=== PATIENT | male | born 1940 | race Asian ===

== ENCOUNTER 2024-10-14 23:09 | Inpatient (IN) | payer OTHER ==
[2024-10-14] MEDS ORDERED: FAMOTIDINE 20 MG/50 ML IVPB 20 MG/50 ML MG IVPB ONE (23:43)
[2024-10-14] MEDS ORDERED: ONDANSETRON 4 MG/2 ML VIAL ONE (23:43)
[2024-10-15 00:06] LABS: VENOUS BASE EXCESS -2.9 mmol/L (-2-2); VENOUS O2 SATURATION 23.8 % (70-80); VENOUS PCO2 51.4 mmHg (38-52); VENOUS PH 7.292 (7.310-7.410)
[2024-10-15 00:07] LABS: BASO % 0.3 % (0-2.0); EOS % 0.5 % (0-4.5); HEMATOCRIT 42.8 % (35.4-49); HEMOGLOBIN 14.2 GM/dL (11.7-16.9); LYMPH % 13.4 % (8-40); MCH 28.2 pg (25.7-33.7); MCHC 33.1 g/dl (32.0-35.9); MEAN CELL VOLUME 85.2 fl (80-96); MEAN PLT VOLUME 10.1 fl (7.5-11.1); NEUT % 77.8 % (42.8-82.8); PLATELET COUNT 162 10^3/uL (134-434); RBC 5.02 M/mm3 (4.00-5.60); RDW 14.7 % (11.9-15.9); WHITE BLOOD COUNT 9.5 K/mm3 (4.0-10.0)
[2024-10-15] MEDS: FAMOTIDINE 20 MG/50 ML IVPB 20 MG in PREMIX 50 IVPB ONE (00:08)
[2024-10-15] MEDS: SODIUM CHLORIDE 0.9% 500 ML INFUS.BAG IV ONE (00:08)
[2024-10-15] MEDS: ONDANSETRON 4 MG/2 ML VIAL IVPB ONE (00:08)
[2024-10-15 00:16] LABS: INR 1.08 (0.83-1.09); PROTHROMBIN TIME (PATIENT) 12.4 SEC (9.7-13.0)
[2024-10-15 00:19] LABS: ACTIVATED PTT 30.1 SECONDS (25.2-36.5)
[2024-10-15 00:23] LABS: POTASSIUM 4.8 mmol/L (3.5-5.1)
[2024-10-15 00:25] LABS: CALCIUM 10.3 mg/dL (8.5-10.1)
[2024-10-15 00:26] LABS: ALBUMIN 3.5 g/dl (3.4-5.0)
[2024-10-15 00:29] LABS: CREATININE 1.3 mg/dL (0.55-1.3)
[2024-10-15 00:30] LABS: BILIRUBIN,TOTAL 1.2 mg/dL (0.2-1); TOT PROT 7.8 g/dl (6.4-8.2)
[2024-10-15 00:47] LABS: LACTIC ACID 2.1 mmol/L (0.4-2.0)
[2024-10-15 03:37] LABS: LACTIC ACID 2.6 mmol/L (0.4-2.0)
[2024-10-15 04:49] VITALS: BMI 21.2
[2024-10-15 05:48] LABS: PH,URINE 5.5 (5.0-8.0); URINE APPEARANCE Clear; URINE BILIRUBIN Negative (NEGATIVE); URINE COLOR Yellow; URINE GLUCOSE (UA) Negative (NEGATIVE); URINE KETONE Negative (NEGATIVE); URINE LEUK ESTERASE Negative (NEGATIVE); URINE NITRITE Negative (NEGATIVE); URINE PROTEIN Negative (NEGATIVE); URINE UROBILINOGEN 0.2 mg/dL (0.2-1.0)
[2024-10-15] MEDS: ASPIRIN COATED 81 MG TABLET.EC PO ONE ×2 (06:44→08:13)
[2024-10-15] MEDS: ATORVASTATIN CA 80 MG TABLET (FP) PO ONE (06:47)
[2024-10-15] MEDS: AZITHROMYCIN IVPB 500 MG/250 ML BAG IVPB ONE (06:48)
[2024-10-15] MEDS: CLOPIDOGREL BISULFATE 300 MG TABLET PO ONE (06:48)
[2024-10-15] MEDS: SODIUM CHLORIDE 1,000 ML IV SCH (06:51)
[2024-10-15] MEDS: POLYETHYLENE GLYCOL (HEALTHYLAX) 3350 17 GM PACKET PO SCH (06:56)
[2024-10-15 07:45] LABS: BASO % 0.2 % (0-2.0); EOS % 0.2 % (0-4.5); HEMATOCRIT 40.9 % (35.4-49); HEMOGLOBIN 13.1 GM/dL (11.7-16.9); LYMPH % 18.6 % (8-40); MCH 27.6 pg (25.7-33.7); MEAN CELL VOLUME 86.3 fl (80-96); MEAN PLT VOLUME 10.5 fl (7.5-11.1); MONO % 7.3 % (3.8-10.2); NEUT % 73.7 % (42.8-82.8); PLATELET COUNT 164 10^3/uL (134-434); RBC 4.75 M/mm3 (4.00-5.60); RDW 14.4 % (11.9-15.9); WHITE BLOOD COUNT 7.5 K/mm3 (4.0-10.0)
[2024-10-15 08:00] LABS: POTASSIUM 4.8 mmol/L (3.5-5.1)
[2024-10-15 08:07] LABS: CALCIUM 9.5 mg/dL (8.5-10.1)
[2024-10-15 08:08] LABS: BLOOD UREA NITROGEN 29.1 mg/dL (7-18); MAGNESIUM 1.9 mg/dL (1.8-2.4)
[2024-10-15 08:09] LABS: CHOLESTEROL 141 mg/dL (50-200)
[2024-10-15 08:10] LABS: LDL CHOLESTEROL (ONLY SJRH) 82 mg/dL (5-100); PHOSPHOROUS 3.2 mg/dL (2.5-4.9)
[2024-10-15 08:11] LABS: CREATININE 1.2 mg/dL (0.55-1.3)
[2024-10-15 08:12] LABS: BILIRUBIN,TOTAL 0.9 mg/dL (0.2-1); HDL CHOLESTEROL 50 mg/dL (40-60); TOT PROT 6.8 g/dl (6.4-8.2)
[2024-10-15 08:25] LABS: LACTIC ACID 2.9 mmol/L (0.4-2.0)
[2024-10-15] MEDS: CEFTRIAXONE 1 G/50 ML PREMIX 50 ML IVPB SCH (08:48)
[2024-10-15] MEDS ORDERED: ONDANSETRON 4 MG/2 ML VIAL IVPUSH PRN (09:15)
[2024-10-15] MEDS ORDERED: ENOXAPARIN NA (PORCINE) 40 MG/0.4 ML DISP.SYRIN SQ SCH (10:00)
[2024-10-15] MEDS: DOXYCYCLINE INJECTION 100 MG in DEXTROSE 5%-WATER 100 ML IVPB SCH (10:40)
[2024-10-15] MEDS: PANTOPRAZOLE 40 MG TABLET PO SCH (10:41)
[2024-10-15] MEDS: ATORVASTATIN CA 40 MG TABLET (FP) PO SCH (21:37)
[2024-10-16 08:45] LABS: POTASSIUM 4.2 mmol/L (3.5-5.1)
[2024-10-16 08:46] LABS: CALCIUM 9.3 mg/dL (8.5-10.1)
[2024-10-16 08:47] LABS: BLOOD UREA NITROGEN 21.3 mg/dL (7-18); MAGNESIUM 1.7 mg/dL (1.8-2.4)
[2024-10-16 08:49] LABS: HEMATOCRIT 42.5 % (35.4-49); HEMOGLOBIN 13.7 GM/dL (11.7-16.9); MCH 27.6 pg (25.7-33.7); MCHC 32.2 g/dl (32.0-35.9); MEAN CELL VOLUME 85.7 fl (80-96); PLATELET COUNT 159 10^3/uL (134-434); RBC 4.96 M/mm3 (4.00-5.60); RDW 14.5 % (11.9-15.9); WHITE BLOOD COUNT 9.5 K/mm3 (4.0-10.0)
[2024-10-16 08:50] LABS: CREATININE 1.2 mg/dL (0.55-1.3); PHOSPHOROUS 2.5 mg/dL (2.5-4.9)
[2024-10-16] MEDS: PANTOPRAZOLE 40 MG TABLET PO SCH (09:20)
[2024-10-16] MEDS: POLYETHYLENE GLYCOL (HEALTHYLAX) 3350 17 GM PACKET PO SCH (09:20)
[2024-10-16] MEDS: ASPIRIN COATED 81 MG TABLET.EC PO SCH (09:20)
[2024-10-16] MEDS: CLOPIDOGREL BISULFATE 75 MG TABLET (FP) PO SCH (09:20)
[2024-10-16] MEDS ORDERED: AZITHROMYCIN IVPB 250 MG in DEXTROSE 5%-WATER - 250 ML IVPB SCH (10:00)
[2024-10-16 15:54] VITALS: BP 108/63; PULSE 76; RESP 17; TEMP 98.2
== END 2024-10-16 17:18 | disposition home or self-care (01) | DRG 64 ==
LOC: JER 23:09 → JERBED 10-15 01:51 → INTOOBSV 10-15 01:51 → J4W 10-15 03:40 → OBSVTOIN 10-15 09:06
PROVIDERS: ADMIT Internal Medicine; ATTEND Internal Medicine
DX: I63.89 Other cerebral infarction (principal); J18.9 Pneumonia, unspecified organism; I44.2 Atrioventricular block, complete; R19.5 Other fecal abnormalities; K20.90 Esophagitis, unspecified without bleeding; R29.701 NIHSS score 1; R26.89 Other abnormalities of gait and mobility; K62.1 Rectal polyp; I10 Essential (primary) hypertension; E78.5 Hyperlipidemia, unspecified; F17.210 Nicotine dependence, cigarettes, uncomplicated; M13.812 Other specified arthritis, left shoulder; Z95.0 Presence of cardiac pacemaker
CPT/HCPCS: 0241U-QW; 36415; 70450-TC; 71045-TC-FY; 74177-TC; 80048; 80053; 80061; 81003; 82803; 83605; 83690; 83735; 84100; 84443; 84484; 85025; 85027; 85610; 85730; 87086; 93005; 93010; 93306-TC; 97116-GP; 97162-GP; 99285-25; G0378; Q9967

== ENCOUNTER 2024-10-25 18:09 | Inpatient (IN) | payer OTHER ==
[2024-10-25] MEDS: LACTATED RINGERS SOLUTION 1000 ML INFUS.BAG IV ONE (19:08)
[2024-10-25 19:59] LABS: VENOUS BASE EXCESS -0.8 mmol/L (-2-2); VENOUS O2 SATURATION 53.2 % (70-80); VENOUS PCO2 47.7 mmHg (38-52); VENOUS PH 7.344 (7.310-7.410)
[2024-10-25 20:01] LABS: BASO % 0.3 % (0-2.0); EOS % 0.6 % (0-4.5); HEMOGLOBIN 13.3 GM/dL (11.7-16.9); LYMPH % 19.2 % (8-40); MCH 28.3 pg (25.7-33.7); MCHC 33.2 g/dl (32.0-35.9); MEAN CELL VOLUME 85.4 fl (80-96); MEAN PLT VOLUME 10.1 fl (7.5-11.1); MONO % 8.6 % (3.8-10.2); NEUT % 71.3 % (42.8-82.8); PLATELET COUNT 188 10^3/uL (134-434); RBC 4.69 M/mm3 (4.00-5.60); RDW 14.6 % (11.9-15.9); WHITE BLOOD COUNT 9.2 K/mm3 (4.0-10.0)
[2024-10-25 20:21] LABS: POTASSIUM 4.5 mmol/L (3.5-5.1)
[2024-10-25 20:23] LABS: ALBUMIN 2.9 g/dl (3.4-5.0); CALCIUM 9.4 mg/dL (8.5-10.1)
[2024-10-25 20:24] LABS: BLOOD UREA NITROGEN 22.6 mg/dL (7-18); MAGNESIUM 1.5 mg/dL (1.8-2.4)
[2024-10-25 20:27] LABS: CREATININE 1.4 mg/dL (0.55-1.3)
[2024-10-25 20:28] LABS: TOT PROT 6.8 g/dl (6.4-8.2)
[2024-10-25 20:35] LABS: INR 1.14 (0.83-1.09); PROTHROMBIN TIME (PATIENT) 12.8 SEC (9.7-13.0)
[2024-10-25 20:36] LABS: LACTIC ACID 2.3 mmol/L (0.4-2.0)
[2024-10-25] MEDS: MAGNESIUM SULFATE IN WATER 2 GM/50 ML IVPB IVPB ONE (20:37)
[2024-10-25 20:38] LABS: ACTIVATED PTT 28.3 SECONDS (25.2-36.5)
[2024-10-25 20:46] LABS: EPI CELLS >36 /uL (0-25.1); HYALINE CASTS 1 /uL (0-3.1); PH,URINE 5.5 (5.0-8.0); URINE APPEARANCE CLEAR; URINE BACTERIA 203 /uL (0-1359); URINE BILIRUBIN NEGATIVE (NEGATIVE); URINE COLOR YELLOW; URINE GLUCOSE (UA) NEGATIVE (NEGATIVE); URINE KETONE TRACE (NEGATIVE); URINE LEUK ESTERASE 1+ (NEGATIVE); URINE NITRITE NEGATIVE (NEGATIVE); URINE PROTEIN TRACE (NEGATIVE); URINE RBC 50 /uL (0-23.9); URINE UROBILINOGEN 0.2 mg/dL (0.2-1.0); URINE WBC 38 /uL (0-25.8)
[2024-10-26] MEDS: MAGNESIUM SULF 50% (8.12 MEQ/2 ML-1 GM VIAL) IVPB ONE (00:49)
[2024-10-26] MEDS: CEFTRIAXONE 1 G/50 ML PREMIX 50 ML IVPB SCH (00:50)
[2024-10-26] MEDS: SODIUM CHLORIDE 1,000 ML IV SCH ×2 (00:50→03:56)
[2024-10-26] MEDS: HEPARIN NA (PORCINE) 5,000 UNITS/ML 1ML VIAL SQ SCH (05:43)
[2024-10-26 08:56] LABS: BASO % 0.5 % (0-2.0); EOS % 1.3 % (0-4.5); HEMATOCRIT 36.8 % (35.4-49); LYMPH % 26.1 % (8-40); MCH 27.7 pg (25.7-33.7); MCHC 32.5 g/dl (32.0-35.9); MEAN CELL VOLUME 85.3 fl (80-96); MEAN PLT VOLUME 10.3 fl (7.5-11.1); MONO % 9.8 % (3.8-10.2); NEUT % 62.3 % (42.8-82.8); PLATELET COUNT 186 10^3/uL (134-434); RBC 4.32 M/mm3 (4.00-5.60); RDW 14.1 % (11.9-15.9); WHITE BLOOD COUNT 8.4 K/mm3 (4.0-10.0)
[2024-10-26] MEDS: ASPIRIN COATED 81 MG TABLET.EC PO SCH (09:10)
[2024-10-26] MEDS: PANTOPRAZOLE 40 MG TABLET PO SCH ×2 (09:10→11:23)
[2024-10-26] MEDS: CLOPIDOGREL BISULFATE 75 MG TABLET (FP) PO SCH (09:10)
[2024-10-26 09:16] LABS: POTASSIUM 4.7 mmol/L (3.5-5.1)
[2024-10-26 09:18] LABS: ALBUMIN 2.7 g/dl (3.4-5.0); BLOOD UREA NITROGEN 21.5 mg/dL (7-18)
[2024-10-26 09:19] LABS: CALCIUM 9.3 mg/dL (8.5-10.1); MAGNESIUM 2.9 mg/dL (1.8-2.4)
[2024-10-26 09:21] LABS: CREATININE 1.3 mg/dL (0.55-1.3); PHOSPHOROUS 3.1 mg/dL (2.5-4.9)
[2024-10-26 09:23] LABS: BILIRUBIN,TOTAL 0.8 mg/dL (0.2-1); TOT PROT 6.3 g/dl (6.4-8.2)
[2024-10-26] MEDS: POLYETHYLENE GLYCOL (HEALTHYLAX) 3350 17 GM PACKET PO SCH (11:23)
[2024-10-26] MEDS: MIRTAZAPINE 15 MG TABLET (FP) PO SCH (21:50)
[2024-10-26] MEDS: ATORVASTATIN CA 40 MG TABLET (FP) PO SCH (21:50)
[2024-10-27] MEDS: DEXTROSE 5%-NORMAL SALINE 1,000 ML IV SCH (08:37)
[2024-10-27 09:52] LABS: HEMATOCRIT 38.3 % (35.4-49); HEMOGLOBIN 12.5 GM/dL (11.7-16.9); MCHC 32.5 g/dl (32.0-35.9); MEAN PLT VOLUME 10.3 fl (7.5-11.1); PLATELET COUNT 197 10^3/uL (134-434); RBC 4.45 M/mm3 (4.00-5.60); RDW 14.3 % (11.9-15.9); WHITE BLOOD COUNT 8.4 K/mm3 (4.0-10.0)
[2024-10-27 10:01] LABS: POTASSIUM 4.7 mmol/L (3.5-5.1)
[2024-10-27 10:14] LABS: BLOOD UREA NITROGEN 22.5 mg/dL (7-18)
[2024-10-27 10:16] LABS: CALCIUM 9.2 mg/dL (8.5-10.1)
[2024-10-27 10:17] LABS: CREATININE 1.5 mg/dL (0.55-1.3); PHOSPHOROUS 2.9 mg/dL (2.5-4.9)
[2024-10-27 10:20] LABS: CHOLESTEROL 128 mg/dL (50-200)
[2024-10-27 10:23] LABS: LDL CHOLESTEROL (ONLY SJRH) 58 mg/dL (5-100)
[2024-10-27 10:24] LABS: HDL CHOLESTEROL 49 mg/dL (40-60)
[2024-10-28 11:54] LABS: BASO % 0.4 % (0-2.0); EOS % 1.4 % (0-4.5); HEMATOCRIT 39.4 % (35.4-49); HEMOGLOBIN 12.9 GM/dL (11.7-16.9); LYMPH % 25.6 % (8-40); MCH 27.9 pg (25.7-33.7); MCHC 32.8 g/dl (32.0-35.9); MEAN PLT VOLUME 10.5 fl (7.5-11.1); MONO % 7.9 % (3.8-10.2); NEUT % 64.7 % (42.8-82.8); PLATELET COUNT 199 10^3/uL (134-434); RBC 4.64 M/mm3 (4.00-5.60); RDW 14.4 % (11.9-15.9); WHITE BLOOD COUNT 8.3 K/mm3 (4.0-10.0)
[2024-10-28 12:20] LABS: ALBUMIN 2.8 g/dl (3.4-5.0); BLOOD UREA NITROGEN 13.3 mg/dL (7-18); CALCIUM 9.1 mg/dL (8.5-10.1)
[2024-10-28 12:23] LABS: CREATININE 1.3 mg/dL (0.55-1.3)
[2024-10-28 12:25] LABS: BILIRUBIN,TOTAL 0.7 mg/dL (0.2-1); TOT PROT 6.5 g/dl (6.4-8.2)
[2024-10-29 07:08] LABS: BASO % 0.4 % (0-2.0); EOS % 1.4 % (0-4.5); HEMATOCRIT 37.1 % (35.4-49); HEMOGLOBIN 12.1 GM/dL (11.7-16.9); LYMPH % 22.4 % (8-40); MCH 27.9 pg (25.7-33.7); MCHC 32.7 g/dl (32.0-35.9); MEAN CELL VOLUME 85.3 fl (80-96); MEAN PLT VOLUME 10.1 fl (7.5-11.1); MONO % 8.8 % (3.8-10.2); PLATELET COUNT 180 10^3/uL (134-434); RBC 4.35 M/mm3 (4.00-5.60); RDW 14.3 % (11.9-15.9); WHITE BLOOD COUNT 9.5 K/mm3 (4.0-10.0)
[2024-10-29 07:26] LABS: POTASSIUM 4.1 mmol/L (3.5-5.1)
[2024-10-29 07:28] LABS: CALCIUM 8.9 mg/dL (8.5-10.1)
[2024-10-29 07:29] LABS: ALBUMIN 2.5 g/dl (3.4-5.0); BLOOD UREA NITROGEN 10.1 mg/dL (7-18); MAGNESIUM 1.5 mg/dL (1.8-2.4)
[2024-10-29 07:34] LABS: BILIRUBIN,TOTAL 0.8 mg/dL (0.2-1); TOT PROT 5.9 g/dl (6.4-8.2)
[2024-10-29] MEDS: DEXTROSE 5%-NORMAL SALINE 1,000 ML IV SCH ×2 (09:46→16:21)
[2024-10-29] MEDS: MAGNESIUM 2GM/50ML STERILE WATER IVPB IVPB ONE (09:47)
[2024-10-29] MEDS: TRIMETHOBENZAMIDE HCL 200MG/2ML INJ IM PRN (09:48)
[2024-10-29] MEDS: AMINO ACIDS 4.25%/D5W 1,000 ML IV SCH ×2 (15:23→16:21)
[2024-10-30 08:51] LABS: BASO % 0.4 % (0-2.0); EOS % 1.5 % (0-4.5); HEMATOCRIT 34.1 % (35.4-49); HEMOGLOBIN 11.3 GM/dL (11.7-16.9); LYMPH % 21.8 % (8-40); MCHC 33.1 g/dl (32.0-35.9); MEAN CELL VOLUME 84.6 fl (80-96); MEAN PLT VOLUME 9.9 fl (7.5-11.1); NEUT % 66.3 % (42.8-82.8); PLATELET COUNT 156 10^3/uL (134-434); RBC 4.03 M/mm3 (4.00-5.60); RDW 14.5 % (11.9-15.9); WHITE BLOOD COUNT 7.8 K/mm3 (4.0-10.0)
[2024-10-30 09:05] LABS: INR 1.07 (0.83-1.09); PROTHROMBIN TIME (PATIENT) 12.3 SEC (9.7-13.0)
[2024-10-30 09:09] LABS: POTASSIUM 4.2 mmol/L (3.5-5.1)
[2024-10-30 09:11] LABS: CALCIUM 8.6 mg/dL (8.5-10.1)
[2024-10-30 09:12] LABS: ALBUMIN 2.5 g/dl (3.4-5.0); BLOOD UREA NITROGEN 11.5 mg/dL (7-18); MAGNESIUM 1.7 mg/dL (1.8-2.4)
[2024-10-30 09:17] LABS: BILIRUBIN,TOTAL 0.6 mg/dL (0.2-1); TOT PROT 5.8 g/dl (6.4-8.2)
[2024-10-30] MEDS: MAGNESIUM 2GM/50ML STERILE WATER IVPB IVPB ONE (10:42)
[2024-10-30] MEDS ORDERED: MIDAZOLAM HCL 2 MG/2 ML SINGLE DOSE VIAL ONE ×2 (14:07→14:20)
[2024-10-30] MEDS ORDERED: NOREPINEPHRINE BITARTRATE 4 MG/4 ML ML IV ONE ×2 (14:29→15:19)
[2024-10-30] MEDS: LACTATED RINGERS SOLUTION 1,000 ML/1,000 ML INFUS.BAG IV STA (15:45)
[2024-10-30] MEDS: DEXMEDETOMIDINE PREMIX 400 MCG/100 ML BAG IVPB SCH (15:45)
[2024-10-30 16:26] LABS: ARTERIAL BLD GAS O2 SATURATION 92.7 % (95-98); ARTERIAL BLOOD GAS BASE EXCESS -2.2 mmol/L (-2-2); ARTERIAL BLOOD GAS PO2 71.9 mmHg (80-100); ARTERIAL BLOOD GAS pH 7.298 (7.350-7.450)
[2024-10-30 16:29] LABS: BASO % 0.3 % (0-2.0); EOS % 1.6 % (0-4.5); HEMATOCRIT 30.4 % (35.4-49); LYMPH % 17.9 % (8-40); MCH 27.9 pg (25.7-33.7); MCHC 32.9 g/dl (32.0-35.9); MEAN CELL VOLUME 84.8 fl (80-96); MONO % 7.3 % (3.8-10.2); NEUT % 72.9 % (42.8-82.8); PLATELET COUNT 157 10^3/uL (134-434); RBC 3.58 M/mm3 (4.00-5.60); RDW 14.2 % (11.9-15.9)
[2024-10-30 16:38] LABS: INR 1.08 (0.83-1.09); PROTHROMBIN TIME (PATIENT) 12.4 SEC (9.7-13.0)
[2024-10-30 16:55] LABS: ALBUMIN 2.1 g/dl (3.4-5.0); BLOOD UREA NITROGEN 11.2 mg/dL (7-18); CALCIUM 7.9 mg/dL (8.5-10.1)
[2024-10-30 16:58] LABS: PHOSPHOROUS 3.3 mg/dL (2.5-4.9)
[2024-10-30 17:00] LABS: BILIRUBIN,TOTAL 0.5 mg/dL (0.2-1)
[2024-10-30 17:15] LABS: LACTIC ACID 2.5 mmol/L (0.4-2.0)
[2024-10-30] MEDS ORDERED: MIDAZOLAM HCL 2 MG/2 ML SINGLE DOSE VIAL IVPUSH PRN (17:57)
[2024-10-30] MEDS ORDERED: PIPERACILLIN/TAZOB 4.5 GM 4.5 GM/100 ML BAG IVPB SCH (18:00)
[2024-10-30] MEDS ORDERED: PIPERACILLIN/TAZOB 3.375 GM 3.375 GM in DEXTROSE 5%-WATER - 50 ML IVPB SCH (18:00)
[2024-10-30] MEDS: NOREPINEPHRINE 0.9 % NACL 8 MG/250 ML BAG IVPB SCH (18:00)
[2024-10-30] MEDS: PIPERACILLIN/TAZOB 4.5 GM 4.5 GM in DEXTROSE 5%-WATER 100 ML IVPB SCH (18:01)
[2024-10-30] MEDS: LACTATED RINGERS SOLUTION 1,000 ML/1,000 ML INFUS.BAG IV SCH ×2 (18:08→23:21)
[2024-10-30] MEDS: PROPOFOL 1,000,000 MCG/100 ML VIAL IVPB SCH (18:08)
[2024-10-30 20:17] LABS: ARTERIAL BLOOD GAS BASE EXCESS -2.8 mmol/L (-2-2); ARTERIAL BLOOD GAS PO2 78.1 mmHg (80-100); ARTERIAL BLOOD GAS pH 7.426 (7.350-7.450)
[2024-10-30 20:19] LABS: VENT MODE A/C; VENT RATE 14
[2024-10-30] MEDS: ALBUTEROL SO4 2.5/IPRATROPIUM 0.5 INH SOL 3 ML VIAL.NEB. NEB SCH (20:19)
[2024-10-30 21:05] LABS: LACTIC ACID 3.2 mmol/L (0.4-2.0)
[2024-10-30] MEDS: CHLORHEXIDINE GLUCONATE 4% CLEANSER FOR DECOLONIZATION TP SCH (22:56)
[2024-10-30] MEDS: MUPIROCIN 2% TOPICAL OINTMENT FOR DECOLONIZATION NS SCH (23:00)
[2024-10-30] MEDS: LACTATED RINGERS SOLUTION 1000 ML INFUS.BAG IV ONE (23:28)
[2024-10-31] MEDS: PIPERACILLIN/TAZOB 4.5 GM 4.5 GM/100 ML BAG IVPB SCH ×2 (01:15→18:36)
[2024-10-31 06:51] LABS: ARTERIAL BLD GAS O2 SATURATION 96.7 % (95-98); ARTERIAL BLOOD GAS BASE EXCESS -1.4 mmol/L (-2-2); ARTERIAL BLOOD GAS PO2 80.5 mmHg (80-100); ARTERIAL BLOOD GAS pH 7.472 (7.350-7.450)
[2024-10-31] MEDS: HEPARIN NA (PORCINE) 5,000 UNITS/ML 1ML VIAL SQ SCH (07:03)
[2024-10-31 07:06] LABS: VENT MODE A/C; VENT RATE 14
[2024-10-31 07:26] LABS: BASO % 0.3 % (0-2.0); EOS % 0.2 % (0-4.5); HEMATOCRIT 35.4 % (35.4-49); HEMOGLOBIN 11.6 GM/dL (11.7-16.9); LYMPH % 13.3 % (8-40); MCH 27.8 pg (25.7-33.7); MCHC 32.9 g/dl (32.0-35.9); MEAN CELL VOLUME 84.4 fl (80-96); MEAN PLT VOLUME 10.7 fl (7.5-11.1); MONO % 5.6 % (3.8-10.2); NEUT % 80.6 % (42.8-82.8); PLATELET COUNT 188 10^3/uL (134-434); RBC 4.19 M/mm3 (4.00-5.60); RDW 14.3 % (11.9-15.9); WHITE BLOOD COUNT 17.8 K/mm3 (4.0-10.0)
[2024-10-31 07:53] LABS: POTASSIUM 3.7 mmol/L (3.5-5.1)
[2024-10-31 07:55] LABS: ALBUMIN 2.2 g/dl (3.4-5.0); BLOOD UREA NITROGEN 10.3 mg/dL (7-18); CALCIUM 8.2 mg/dL (8.5-10.1); MAGNESIUM 1.6 mg/dL (1.8-2.4)
[2024-10-31 07:58] LABS: CREATININE 1.1 mg/dL (0.55-1.3)
[2024-10-31 08:00] LABS: BILIRUBIN,TOTAL 0.9 mg/dL (0.2-1); TOT PROT 5.4 g/dl (6.4-8.2)
[2024-10-31] MEDS ORDERED: MAGNESIUM SULF 50% (8.12 MEQ/2 ML-1 GM VIAL) ONE (09:09)
[2024-10-31] MEDS: MAGNESIUM 2GM/50ML STERILE WATER IVPB IVPB ONE (09:23)
[2024-10-31] MEDS: DEXTROSE 5%-LACTATED RINGERS 1,000 ML IV SCH (09:27)
[2024-11-01 06:49] LABS: ARTERIAL BLD GAS O2 SATURATION 96.6 % (95-98); ARTERIAL BLOOD GAS BASE EXCESS 0.7 mmol/L (-2-2); ARTERIAL BLOOD GAS PO2 87.2 mmHg (80-100); ARTERIAL BLOOD GAS pH 7.403 (7.350-7.450)
[2024-11-01 06:57] LABS: VENT MODE A/C; VENT RATE 14
[2024-11-01 07:49] LABS: BASO % 0.3 % (0-2.0); EOS % 0.7 % (0-4.5); HEMATOCRIT 31.2 % (35.4-49); HEMOGLOBIN 10.3 GM/dL (11.7-16.9); LYMPH % 13.3 % (8-40); MCH 28.4 pg (25.7-33.7); MEAN CELL VOLUME 85.8 fl (80-96); MEAN PLT VOLUME 10.7 fl (7.5-11.1); MONO % 7.7 % (3.8-10.2); PLATELET COUNT 164 10^3/uL (134-434); RBC 3.63 M/mm3 (4.00-5.60); RDW 14.4 % (11.9-15.9); WHITE BLOOD COUNT 16.6 K/mm3 (4.0-10.0)
[2024-11-01 08:04] LABS: POTASSIUM 3.8 mmol/L (3.5-5.1)
[2024-11-01 08:11] LABS: BLOOD UREA NITROGEN 10.2 mg/dL (7-18); MAGNESIUM 1.7 mg/dL (1.8-2.4)
[2024-11-01 08:14] LABS: CREATININE 1.2 mg/dL (0.55-1.3); PHOSPHOROUS 3.3 mg/dL (2.5-4.9)
[2024-11-01 08:16] LABS: BILIRUBIN,TOTAL 0.5 mg/dL (0.2-1); TOT PROT 5.1 g/dl (6.4-8.2)
[2024-11-01] MEDS ORDERED: DEXTROSE 5%-WATER - 1,000 ML IV SCH (08:45)
[2024-11-01] MEDS ORDERED: FENTANYL CITRATE/PF 50 MCG/ML VIAL IVPUSH PRN (09:05)
[2024-11-01] MEDS: MAGNESIUM 1GM/D5W - 1 GM/100 ML IVPB IVPB ONE (09:16)
[2024-11-01] MEDS: LACTATED RINGERS SOLUTION 1000 ML INFUS.BAG IV ONE (09:21)
[2024-11-01] MEDS: DEXTROSE 5%-LACTATED RINGERS 1,000 ML IV SCH (09:59)
[2024-11-01 14:39] VITALS: BMI 22.6
[2024-11-02 06:20] LABS: ARTERIAL BLD GAS O2 SATURATION 98.7 % (95-98); ARTERIAL BLOOD GAS BASE EXCESS 1.5 mmol/L (-2-2); ARTERIAL BLOOD GAS pH 7.431 (7.350-7.450)
[2024-11-02 06:22] LABS: VENT MODE A/C; VENT RATE 14
[2024-11-02 07:14] LABS: BASO % 0.3 % (0-2.0); EOS % 1.5 % (0-4.5); HEMATOCRIT 28.6 % (35.4-49); HEMOGLOBIN 9.6 GM/dL (11.7-16.9); LYMPH % 18.6 % (8-40); MCH 28.4 pg (25.7-33.7); MCHC 33.4 g/dl (32.0-35.9); MEAN CELL VOLUME 85.1 fl (80-96); MEAN PLT VOLUME 10.5 fl (7.5-11.1); MONO % 8.6 % (3.8-10.2); PLATELET COUNT 164 10^3/uL (134-434); RBC 3.36 M/mm3 (4.00-5.60); RDW 14.7 % (11.9-15.9); WHITE BLOOD COUNT 10.3 K/mm3 (4.0-10.0)
[2024-11-02 07:25] LABS: POTASSIUM 3.4 mmol/L (3.5-5.1)
[2024-11-02 07:34] LABS: ALBUMIN 1.9 g/dl (3.4-5.0); BLOOD UREA NITROGEN 8.2 mg/dL (7-18); CALCIUM 8.1 mg/dL (8.5-10.1); MAGNESIUM 1.6 mg/dL (1.8-2.4)
[2024-11-02 07:39] LABS: BILIRUBIN,TOTAL 0.5 mg/dL (0.2-1); TOT PROT 4.9 g/dl (6.4-8.2)
[2024-11-02] MEDS: MAGNESIUM SULFATE IN WATER 2 GM/50 ML IVPB IVPB ONE (07:59)
[2024-11-02] MEDS: KCL 20 MEQ PREMIX BAG 20 MEQ/100 ML INFUS.BAG IVPB SCH (09:19)
[2024-11-02] MEDS: PANTOPRAZOLE SODIUM 40 MG VIAL IVPUSH SCH (13:52)
[2024-11-03 06:59] LABS: HEMATOCRIT 30.9 % (35.4-49); HEMOGLOBIN 9.8 GM/dL (11.7-16.9); MCH 27.7 pg (25.7-33.7); MCHC 31.7 g/dl (32.0-35.9); MEAN CELL VOLUME 87.3 fl (80-96); MEAN PLT VOLUME 10.1 fl (7.5-11.1); PLATELET COUNT 162 10^3/uL (134-434); RBC 3.54 M/mm3 (4.00-5.60); RDW 14.8 % (11.9-15.9)
[2024-11-03 07:14] LABS: POTASSIUM 3.5 mmol/L (3.5-5.1)
[2024-11-03 07:15] LABS: CALCIUM 8.4 mg/dL (8.5-10.1)
[2024-11-03 07:19] LABS: CREATININE 1.1 mg/dL (0.55-1.3); PHOSPHOROUS 3.1 mg/dL (2.5-4.9)
[2024-11-03 07:21] LABS: TOT PROT 5.4 g/dl (6.4-8.2)
[2024-11-03] MEDS: methylPREDNISolone NA SUCC 40 MG/1 ML VIAL IVPUSH SCH (12:18)
[2024-11-03] MEDS ORDERED: POTASSIUM CHLORIDE 10 MEQ in AMINO ACIDS 4.25%/D5W 1,000 ML IV SCH (13:15)
[2024-11-03] MEDS: POTASSIUM CHLORIDE 10 MEQ in AMINO ACIDS 4.25%/D5W 1,000 ML IV SCH (15:26)
[2024-11-03] MEDS: DEXTROSE 5%-LACTATED RINGERS 1,000 ML IV SCH (17:50)
[2024-11-03] MEDS: BUDESONIDE 0.5 MG/2 ML INH SUSP VIAL NEB SCH (20:54)
[2024-11-04 07:22] LABS: HEMATOCRIT 35.3 % (35.4-49); HEMOGLOBIN 11.7 GM/dL (11.7-16.9); MCH 28.3 pg (25.7-33.7); MCHC 33.2 g/dl (32.0-35.9); MEAN CELL VOLUME 85.4 fl (80-96); MEAN PLT VOLUME 10.2 fl (7.5-11.1); PLATELET COUNT 208 10^3/uL (134-434); RBC 4.13 M/mm3 (4.00-5.60); RDW 14.5 % (11.9-15.9)
[2024-11-04 07:43] LABS: ALBUMIN 2.3 g/dl (3.4-5.0)
[2024-11-04 07:44] LABS: BLOOD UREA NITROGEN 17.5 mg/dL (7-18); MAGNESIUM 1.8 mg/dL (1.8-2.4)
[2024-11-04 07:47] LABS: CREATININE 1.3 mg/dL (0.55-1.3); PHOSPHOROUS 3.6 mg/dL (2.5-4.9)
[2024-11-04 07:48] LABS: BILIRUBIN,TOTAL 0.8 mg/dL (0.2-1); TOT PROT 6.4 g/dl (6.4-8.2)
[2024-11-04] MEDS: FUROSEMIDE 40 MG/4 ML INJECTABLE VIAL IVPUSH ONE (11:23)
[2024-11-04] MEDS: DEXMEDETOMIDINE PREMIX 400 MCG/100 ML BAG IVPB SCH (19:47)
[2024-11-05 08:13] LABS: HEMATOCRIT 30.7 % (35.4-49); MCH 27.8 pg (25.7-33.7); MCHC 32.5 g/dl (32.0-35.9); MEAN CELL VOLUME 85.4 fl (80-96); MEAN PLT VOLUME 10.2 fl (7.5-11.1); PLATELET COUNT 178 10^3/uL (134-434); RBC 3.59 M/mm3 (4.00-5.60); RDW 14.4 % (11.9-15.9); WHITE BLOOD COUNT 8.4 K/mm3 (4.0-10.0)
[2024-11-05 08:39] LABS: CALCIUM 8.6 mg/dL (8.5-10.1)
[2024-11-05 08:40] LABS: ALBUMIN 2.1 g/dl (3.4-5.0); BLOOD UREA NITROGEN 31.9 mg/dL (7-18); MAGNESIUM 1.6 mg/dL (1.8-2.4)
[2024-11-05 08:43] LABS: CREATININE 1.2 mg/dL (0.55-1.3); PHOSPHOROUS 2.4 mg/dL (2.5-4.9)
[2024-11-05 08:44] LABS: BILIRUBIN,TOTAL 0.6 mg/dL (0.2-1)
[2024-11-05 08:45] LABS: TOT PROT 5.7 g/dl (6.4-8.2)
[2024-11-05] MEDS ORDERED: ACETAMINOPHEN INJECTION 100 ML ONE (09:32)
[2024-11-05] MEDS: POTASSIUM CHLORIDE 40 MEQ in SODIUM CHLORIDE 1,000 ML IVPB SCH (09:49)
[2024-11-05] MEDS: MAGNESIUM SULFATE IN WATER 2 GM/50 ML IVPB IVPB ONE (09:49)
[2024-11-05] MEDS: POTASSIUM CHLORIDE 40 MEQ in DEXTROSE 5%-LACTATED RINGERS 980 ML IV SCH (13:03)
[2024-11-05] MEDS: POTASSIUM PHOSPHATE 15 MM in DEXTROSE 5%-WATER - 250 ML IVPB ONE (13:40)
[2024-11-05] MEDS ORDERED: LORazepam 2 MG/ML SDV VIAL IVPUSH PRN (14:21)
[2024-11-05] MEDS: PIPERACILLIN/TAZOB 3.375 GM 3.375 GM in DEXTROSE 5%-WATER - 50 ML IVPB SCH (15:03)
[2024-11-05] MEDS: LACTATED RINGERS SOLUTION 1,000 ML with POTASSIUM CHLORIDE 40 MEQ IV ONE (15:13)
[2024-11-05] MEDS: MAGNESIUM 2GM/50ML STERILE WATER IVPB IVPB ONE (15:13)
[2024-11-05] MEDS ORDERED: NOREPINEPHRINE BITARTRATE 4 MG/4 ML ML IV ONE (17:31)
[2024-11-05] MEDS: DEXMEDETOMIDINE PREMIX 400 MCG/100 ML BAG IVPB SCH (19:00)
[2024-11-07] MEDS: POTASSIUM PHOSPHATE 30 MM in DEXTROSE 5%-WATER - 500 ML IVPB ONE (03:58)
[2024-11-07] MEDS: MAGNESIUM SULF 50% (8.12 MEQ/2 ML-1 GM VIAL) IVPB ONE (03:59)
[2024-11-07] MEDS: BUDESONIDE 0.5 MG/2 ML INH SUSP VIAL NEB SCH (08:00)
[2024-11-07] MEDS: ALBUTEROL SO4 2.5/IPRATROPIUM 0.5 INH SOL 3 ML VIAL.NEB. NEB SCH (08:00)
[2024-11-07] MEDS: PANTOPRAZOLE SODIUM 40 MG VIAL IVPUSH SCH (10:51)
[2024-11-07] MEDS: PIPERACILLIN/TAZOB 3.375 GM 3.375 GM in DEXTROSE 5%-WATER - 50 ML IVPB SCH (13:58)
[2024-11-07] MEDS ORDERED: morphine SULFATE 10 MG/5 ML UNIT-DOSE CUP PO PRN (14:37)
[2024-11-07] MEDS: ONDANSETRON 4 MG/2 ML VIAL IVPUSH PRN (15:04)
[2024-11-10 18:02] VITALS: TEMP 97.7
[2024-11-12 16:58] VITALS: BP 131/63; PULSE 88; RESP 18
[2024-11-14] MEDS: LORazepam 2 MG/ML SDV VIAL IVPUSH PRN (19:40)
[2024-11-15] MEDS ORDERED: FENTANYL PATCH WASTE TD PRN (15:26)
[2024-11-15] MEDS: morphine SULFATE 4 MG/ML VIAL IVPUSH PRN (16:27)
[2024-11-15] MEDS: fentaNYL 12mcg/hr PATCH.TD72 TD SCH (16:29)
[2024-11-16] MEDS: SCOPOLAMINE HYDROBROMIDE 1 PATCH PATCH.TD72 TD SCH (08:21)
[2024-11-16] MEDS: morphine SULFATE 4 MG/ML VIAL IVPUSH ONE ×2 (11:53→13:45)
[2024-11-16] MEDS: MORPHINE SULFATE/0.9% NACL/PF 100 MG/100 ML BAG IVPB SCH (14:17)
== END 2024-11-16 20:59 | disposition expired | DRG 56 ==
LOC: JER 18:09 → INTOOBSV 22:19 → JERBED 22:19 → J7W 23:19 → OBSVTOIN 10-26 08:26 → J7W 10-29 09:18 → JICU 10-30 15:15 → J4S 11-06 23:27
PROVIDERS: ADMIT Internal Medicine; ATTEND Internal Medicine
PROC: B543ZZA Ultrasonography of Right Jugular Veins, Guidance (ICD-10-PCS; 2024-10-30)
PROC: 0BH17EZ Insertion of Endotracheal Airway into Trachea, Via Natural or Artificial Opening (ICD-10-PCS; 2024-10-30)
PROC: 5A1945Z Respiratory Ventilation, 24-96 Consecutive Hours (ICD-10-PCS; 2024-10-30)
PROC: 05HM33Z Insertion of Infusion Device into Right Internal Jugular Vein, Percutaneous Approach (ICD-10-PCS; principal; 2024-10-30 13:30)
DX: I69.30 Unspecified sequelae of cerebral infarction (principal); A41.89 Other specified sepsis; G93.41 Metabolic encephalopathy; J69.0 Pneumonitis due to inhalation of food and vomit; R65.21 Severe sepsis with septic shock; J96.01 Acute respiratory failure with hypoxia; I61.9 Nontraumatic intracerebral hemorrhage, unspecified; N17.9 Acute kidney failure, unspecified; N39.0 Urinary tract infection, site not specified; J44.0 Chronic obstructive pulmonary disease with (acute) lower respiratory infection; E87.20 Acidosis, unspecified; E87.0 Hyperosmolality and hypernatremia; E44.0 Moderate protein-calorie malnutrition; I10 Essential (primary) hypertension; E86.0 Dehydration; E78.5 Hyperlipidemia, unspecified; M19.012 Primary osteoarthritis, left shoulder; E83.42 Hypomagnesemia; R11.2 Nausea with vomiting, unspecified; R50.9 Fever, unspecified; E27.9 Disorder of adrenal gland, unspecified; R91.8 Other nonspecific abnormal finding of lung field; K22.89 Other specified disease of esophagus; R62.7 Adult failure to thrive; Z68.23 Body mass index [BMI] 23.0-23.9, adult; Z95.0 Presence of cardiac pacemaker; R13.10 Dysphagia, unspecified; G93.89 Other specified disorders of brain; E87.6 Hypokalemia; I46.9 Cardiac arrest, cause unspecified
CPT/HCPCS: 0241U-QW; 36415; 36600; 70450-TC; 71045-TC-FY; 71250-TC; 74176-TC; 74220-TC-FY; 74240-TC-FY; 76775-TC; 80048; 80053; 80061; 81003; 82550; 82607; 82803; 82962; 83090; 83605; 83690; 83700; 83735; 84100; 84484; 85025; 85027; 85610; 85730; 87040; 87070; 87086; 87186; 87205; 87481; 93005; 93010; 93880-TC; 94002; 94010; 94640; 97116-GP; 97161-GP; 99285-25; G0378; J1644